=== PATIENT | female | born 1980 | race Caucasian/White ===

== ENCOUNTER 2023-06-24 20:19 | Emergency (ER) | payer OTHER ==
[2023-06-24] MEDS ORDERED: DEXAMETHASONE 4 MG TABLET (FP) PO ONE (20:46)
[2023-06-24 20:49] VITALS: BP 111/76; PULSE 86; RESP 18; TEMP 98.6; BMI 22.4
[2023-06-24] MEDS ORDERED: DEXAMETHASONE 4 MG TABLET (FP) ONE (20:50)
== END 2023-06-24 21:10 | disposition home or self-care (01) ==
LOC: FER 20:19
DX: T78.49XA Other allergy, initial encounter (principal)
CPT/HCPCS: 99283-25